=== PATIENT | male | born 1960 | race Caucasian/White ===

== ENCOUNTER → 2023-12-17 09:04 | Outpatient (CLI) | payer OTHER, SELFPAY ==
--- NOTE | 2023-12-17 09:08 | DI.RAD.S_ITS ---
PROCEDURE: XR KNEE RT 3V INDICATIONS: arthritis TECHNIQUE: 3 views of the knee were acquired. COMPARISON: [facility], ROVERTO, KNEE SERIES RT, 11/19/2014, 12:51. 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 This is unchanged radiographically from 2015. No other potential osseous abnormalities. Joints: Mild patellofemoral medial tibial from degenerative changes stable. Soft tissues: Normal IMPRESSION: Mild degeneration Dictated by: Gal Barahona M.D. on 12/18/2023 at 9:43 Approved by: Gal Barahona M.D. on 12/18/2023 at 9:47
--- NOTE | 2023-12-17 09:08 | DI.RAD.S_ITS ---
PROCEDURE: XR KNEE LT 3V INDICATIONS: arthritis TECHNIQUE: 3 views of the knee were acquired. COMPARISON: None. FINDINGS: Bones: There are no osseous abnormalities. Joints: The tibialfemoral and patellofemoral joints are normal in width and alignment without arthritic change. . There are no effusions. Soft tissues: Normal IMPRESSION: Normal knee. Dictated by: Gal Barahona M.D. on 12/18/2023 at 9:47 Approved by: Gal Barahona M.D. on 12/18/2023 at 9:48
== END ==
LOC: RAD 09:07
PROVIDERS: Referring Provider Chiropractor; Visit Provider Chiropractor
DX: M13.861 Other specified arthritis, right knee (principal); M13.862 Other specified arthritis, left knee
CPT/HCPCS: 73562

== ENCOUNTER → 2024-05-05 08:50 | Outpatient (CLI) | payer OTHER, SELFPAY ==
--- NOTE | 2024-05-05 08:54 | DI.RAD.S_ITS ---
PROCEDURE: XR HIP W PEL IF DONE BILAT 2V INDICATIONS: BI HIP ARTHRITIS TECHNIQUE: AP pelvis with lateral view(s) of the bilateral hip(s). COMPARISON: None. FINDINGS: Bones: No fractures or dislocations. Moderate bilateral osteoarthritic degenerative change includes joint space narrowing, marginal osteophytosis and acetabular subchondral sclerosis. Pelvic ring appears intact. No suspicious bony lesions. Soft tissues: The visualized bowel gas pattern is normal. No suspicious soft tissue calcifications. Atherosclerotic vascular calcifications are identified. IMPRESSION: Degenerative change of the bilateral hips without evidence of acute osseous abnormality. Dictated by: Sanjay Nieves M.D. on 05/06/2024 at 3:25 Approved by: Sanjay Nieves M.D. on 05/06/2024 at 3:26
== END ==
PROVIDERS: Referring Provider Chiropractor; Visit Provider Chiropractor
DX: M13.851 Other specified arthritis, right hip (principal); M13.852 Other specified arthritis, left hip
CPT/HCPCS: 73521